=== PATIENT | female | born 1950 | race Caucasian/White ===

== ENCOUNTER → 2016-06-16 | Day surgery (SDC) | payer OTHER, BC | END | disposition home or self-care (01) | LOC: JRADIR 11:22 | PROVIDERS: ATTEND Internal Medicine | PROC: 0T9B30Z Drainage of Bladder with Drainage Device, Percutaneous Approach (ICD-10-PCS; principal; 2016-06-16) | DX: Z46.6 Encounter for fitting and adjustment of urinary device (principal); G35 Multiple sclerosis | CPT/HCPCS: 51705; 75984; A4314; A4358 ==

== ENCOUNTER → 2016-07-15 | Day surgery (SDC) | payer OTHER, BC | END | disposition home or self-care (01) | LOC: JRADIR 10:54 | PROVIDERS: ATTEND Internal Medicine | PROC: 0T9B30Z Drainage of Bladder with Drainage Device, Percutaneous Approach (ICD-10-PCS; principal; 2016-07-15) | DX: N99.512 Cystostomy malfunction (principal); G35 Multiple sclerosis; T83.090A Other mechanical complication of cystostomy catheter, initial encounter; Y83.8 Other surgical procedures as the cause of abnormal reaction of the patient, or of later complication, without mention of misadventure at the time of the procedure | CPT/HCPCS: 51705; 75984; 87086 ==

== ENCOUNTER → 2016-09-08 | Day surgery (SDC) | payer OTHER, BC ==
[2016-09-08 13:09] LABS: URINE APPEARANCE CLOUDY; URINE COLOR AMBER; URINE GLUCOSE (UA) NEGATIVE (NEGATIVE); URINE PROTEIN 1+ (NEGATIVE)
[2016-09-08 13:10] LABS: URINE BILIRUBIN NEGATIVE (NEGATIVE); URINE BLOOD 3 (NEGATIVE); URINE KETONE NEGATIVE (NEGATIVE); URINE UROBILINOGEN 4.0 E.U/dl E.U./dl (0.2-1.0)
[2016-09-08 13:12] LABS: URINE LEUK ESTERASE 3+ (NEGATIVE); URINE NITRITE POSITIVE (NEGATIVE)
== END | disposition home or self-care (01) ==
LOC: JRADIR 10:39
PROVIDERS: ATTEND Internal Medicine
PROC: 0T9B70Z Drainage of Bladder with Drainage Device, Via Natural or Artificial Opening (ICD-10-PCS; principal; 2016-09-08)
DX: G35 Multiple sclerosis (principal)
CPT/HCPCS: 75984; 81003; 81015; 87086; 87186; A4314; A4358

== ENCOUNTER 2017-05-19 19:49 | Emergency (ER) | payer OTHER, BC ==
[2017-05-19] MEDS ORDERED: diphenhydrAMINE HCL 25 MG CAPSULE (FP) PO ONE ×2 (20:22→20:25)
[2017-05-19 20:37] LABS: BASO % 0.2 % (0-2.0); EOS % 1.4 % (0-4.5); HEMATOCRIT 37.5 % (32.4-45.2); HEMOGLOBIN 12.4 GM/dl (10.7-15.3); LYMPH % 11.5 % (8-40); MEAN CELL VOLUME 87.9 fl (80-96); MEAN PLT VOLUME 10.1 fl (7.5-11.1); MONO % 4.8 % (3.8-10.2); NEUT % 82.1 % (42.8-82.8); PLATELET COUNT 274 K/MM3 (134-434); RBC 4.27 M/mm3 (3.60-5.2); RDW 13.6 % (11.6-15.6); WHITE BLOOD COUNT 10.4 K/mm3 (4.0-10.8)
[2017-05-19 20:40] VITALS: TEMP 98.1; BMI 20.8
[2017-05-19 20:49] LABS: ALBUMIN 3.4 g/dl (3.5-5.0); ALK PHOS 72 U/L (32-92); ANION GAP 4 (8-16); BILIRUBIN,TOTAL 0.6 mg/dl (0.2-1.0); BLOOD UREA NITROGEN 22 mg/dl (7-18); CALCIUM 8.4 mg/dl (8.4-10.2); CHLORIDE 104 mmol/L (98-107); CO2 27 mmol/L (22-28); CREATININE 0.5 mg/dl (0.6-1.3); GLUCOSE,RANDOM 118 mg/dl (74-106); POTASSIUM 4.6 mmol/L (3.5-5.1); SGOT/AST 14 U/L (10-42); SGPT/ALT 9 U/L (10-40); SODIUM 135 mmol/L (136-145); TOT PROT 6.3 g/dl (6.4-8.3)
--- NOTE | 2017-05-19 21:04 | PDOC ---
History of Present Illness - General History Source: Patient Exam Limitations: No Limitations - History of Present Illness Initial Comments: 05/19/17 21:05 The patient is a 67 year old female with past medical history of advanced MS, neurogenic bladder (with catheter and intrathecal pump), scoliosis, urinary retention and constipation secondary to opioid use, hypothyroidism, and depression who was sent to the ED via her PCP from the [facility], who presents to the ED for low O2 saturation and low pulse rate recorded today. As per , the patient has had episodes of hypotension all week followed by periods of breakthrough. In the ED, the patient is asymptomatic aside from feeling itchy and requesting Benadryl. PCP: Maricruz Nava <Fauzia Avendano - Last Filed: 05/19/17 21:05> <Ko Granados - Last Filed: 05/20/17 02:40> - General Chief Complaint: Blood Pressure Problem Stated Complaint: LOW BP, CHRONIC PAIN Time Seen by Provider: 05/19/17 20:21 Past History <Fauzia Avendano - Last Filed: 05/19/17 21:05> - Past Medical History Anemia: No Asthma: No Cancer: No Cardiac Disorders: No CVA: No COPD: No CHF: No Dementia: No Diabetes: No GI Disorders: Yes (GERD COLONIC POLYPS) Disorders: (neurogenic bladder s/p suprapubic tube) HTN: No Hypercholesterolemia: No Liver Disease: No Psychiatric Problems: Yes (anxiety) Seizures: No Thyroid Disease: Yes (HYPOTHYROIDISM) - Surgical History Abdominal Surgery: No Appendectomy: No Cardiac Surgery: No Cholecystectomy: No Lung Surgery: No Neurologic Surgery: No Orthopedic Surgery: Yes (FRACTURE LT. HUMERUS-ORIF 2005) - Immunization History Immunization Up to Date: Yes - Suicide/Smoking/Psychosocial Hx Smoking History: Never smoked Have you smoked in the past 12 months: No Number of Cigarettes Smoked Daily: 0 Hx Alcohol Use: No Drug/Substance Use Hx: No Substance Use Type: None Hx Substance Use Treatment: No <Ko Granados - Last Filed: 05/20/17 02:40> - Past Medical History Allergies/Adverse Reactions: Allergies Allergy/AdvReac Type Severity Reaction Status Date / Time Tetracyclines Allergy Severe Verified 04/07/15 10:25 tingling and burning all over body Home Medications: Ambulatory Orders Alprazolam [Xanax] 0.25 mg PO TID 03/30/15 Ascorbate Calcium [Vitamin C] 500 mg PO DAILY 05/19/17 Dalfampridine [Ampyra] 10 mg PO Q12H 05/19/17 Diclofenac Sodium [Diclo Gel] 1 each TP TID PRN 05/19/17 Hydrocortisone 10 mg PO DAILY 05/19/17 Hydrocortisone [Cortef -] 5 mg PO HS 05/19/17 Lamotrigine [Lamictal -] 50 mg PO HS 05/19/17 Lamotrigine [Lamictal -] 100 mg PO DAILY 05/19/17 Levothyroxine [Synthroid -] 112 mcg PO Q48H 05/19/17 Levothyroxine [Synthroid -] 125 mcg PO Q48H 05/19/17 Linaclotide [Linzess] 145 mcg PO DAILY 05/19/17 Methadone [Dolophine -] 10 mg PO Q8H 05/19/17 Morphine 3,800 mcg 05/19/17 Nitrofurantoin Monohyd/M-Cryst [Macrobid -] 100 mg PO DAILY 05/19/17 Pregabalin [Lyrica -] 150 mg PO TID 05/19/17 Rivaroxaban [Xarelto -] 15 mg PO HS 05/19/17 Review of Systems - Review of Systems Able to Perform ROS?: Yes Comments:: 05/19/17 21:06 GENERAL/CONSTITUTIONAL: No fever or chills. No weakness. HEAD, EYES, EARS, NOSE AND THROAT: No change in vision. No ear pain or discharge. No sore throat. CARDIOVASCULAR: No chest pain or shortness of breath. RESPIRATORY: No cough, wheezing, or hemoptysis. GASTROINTESTINAL: No nausea, vomiting, diarrhea or constipation. GENITOURINARY: No dysuria, frequency, or change in urination. MUSCULOSKELETAL: No joint or muscle swelling or pain. No neck or back pain. SKIN: Present: itchy skin No rash NEUROLOGIC: No headache, vertigo, loss of consciousness, or change in strength/ sensation. ENDOCRINE: No increased thirst. No abnormal weight change. HEMATOLOGIC/LYMPHATIC: No anemia, easy bleeding, or history of blood clots. ALLERGIC/IMMUNOLOGIC: No hives or skin allergy. All Other Systems: Reviewed and Negative <Fauzia Avendano - Last Filed: 05/19/17 21:05> *Physical Exam - Vital Signs Last Vital Signs Temp Pulse Resp BP Pulse Ox 98.1 F 47 L 12 88/41 94 L 05/19/17 19:59 05/19/17 20:43 05/19/17 20:43 05/19/17 20:43 05/19/17 20:43 - Physical Exam Comments: 05/19/17 21:07 GENERAL: Awake, alert, and fully oriented, uncomfortable appearing HEAD: No signs of trauma EYES: PERRLA, EOMI, sclera anicteric, conjunctiva clear ENT: Dry mucous membranes. Auricles normal inspection, hearing grossly normal, nares patent, oropharynx clear without exudates. NECK: Normal ROM, supple, no lymphadenopathy, JVD, or masses LUNGS: Breath sounds equal, clear to auscultation bilaterally. No wheezes, and no crackles HEART: Regular rate and rhythm, normal S1 and S2, no murmurs, rubs or gallops ABDOMEN: Soft, nontender, normoactive bowel sounds. No guarding, no rebound. No masses EXTREMITIES: Normal range of motion, no edema. No clubbing or cyanosis. No cords, erythema, or tenderness NEUROLOGICAL: Cranial nerves II through XII grossly intact. Chronic neural impairment SKIN: Warm, Dry, normal turgor, no rashes or lesions noted. No decubitus. <Fauzia Avendano - Last Filed: 05/19/17 21:05> - Vital Signs Last Vital Signs Temp Pulse Resp BP Pulse Ox 98.1 F 47 L 12 88/41 94 L 05/19/17 19:59 05/19/17 20:43 05/19/17 20:43 05/19/17 20:43 05/19/17 20:43 <Ko Granados - Last Filed: 05/20/17 02:40> ED Treatment Course - LABORATORY CBC & Chemistry Diagram: 05/19/17 20:15 05/19/17 20:15 - ADDITIONAL ORDERS Additional order review: Laboratory Results 05/19/17 20:15 Sodium 135 L Potassium 4.6 D Chloride 104 Carbon Dioxide 27 Anion Gap 4 L BUN 22 H D Creatinine 0.5 L Creat Clearance w eGFR > 60 Random Glucose 118 H D Calcium 8.4 Total Bilirubin 0.6 D AST 14 D ALT 9 L D Alkaline Phosphatase 72 D Total Protein 6.3 L Albumin 3.4 L 05/19/17 20:15 RBC 4.27 MCV 87.9 MCHC 33.0 RDW 13.6 MPV 10.1 Neutrophils % 82.1 Lymphocytes % 11.5 Monocytes % 4.8 Eosinophils % 1.4 Basophils % 0.2 - Medications Given in the ED: ED Medications Discontinued Medications Generic Name Dose Route Start Last Admin Trade Name Michelle PRN Reason Stop Dose Admin Diphenhydramine HCl 25 mg 05/19/17 20:22 05/19/17 20:25 Benadryl - PO 05/19/17 20:23 25 mg ONCE ONE Administration <Fauzia Avendano - Last Filed: 05/19/17 21:05> - LABORATORY CBC & Chemistry Diagram: 05/19/17 20:15 05/19/17 20:15 - ADDITIONAL ORDERS Additional order review: Laboratory Results 05/19/17 20:15 Sodium 135 L Potassium 4.6 D Chloride 104 Carbon Dioxide 27 Anion Gap 4 L BUN 22 H D Creatinine 0.5 L Creat Clearance w eGFR > 60 Random Glucose 118 H D Calcium 8.4 Total Bilirubin 0.6 D AST 14 D ALT 9 L D Alkaline Phosphatase 72 D Total Protein 6.3 L Albumin 3.4 L 05/19/17 20:15 RBC 4.27 MCV 87.9 MCHC 33.0 RDW 13.6 MPV 10.1 Neutrophils % 82.1 Lymphocytes % 11.5 Monocytes % 4.8 Eosinophils % 1.4 Basophils % 0.2 - Medications Given in the ED: ED Medications Discontinued Medications Generic Name Dose Route Start Last Admin Trade Name Michelle PRN Reason Stop Dose Admin Diphenhydramine HCl 25 mg 05/19/17 20:22 05/19/17 20:25 Benadryl - PO 05/19/17 20:23 25 mg ONCE ONE Administration <Ko Granados - Last Filed: 05/20/17 02:40> Medical Decision Making - Medical Decision Making 05/20/17 02:40 05/20/17 02:36 please note: no CVAT decreased ROM in RUE and b/l LEs no decubs noted observed x 5hrs in ED with normalization of VS Prerenal azotemia treated with NS equivocal UA--u culture sent to be followed up a/p dehydration medication reaction improved after ED mgmt/ observation 05/20/17 02:39 <Ko Granados - Last Filed: 05/20/17 02:40> *DC/Admit/Observation/Transfer - Attestations Scribe Attestion: 05/19/17 21:09 Documentation prepared by Fauzia Avendano, acting as medical staff manager for Ko Granados MD/DO. <Fauzia Avendano - Last Filed: 05/19/17 21:05> <Ko Granados - Last Filed: 05/20/17 02:40> Diagnosis at time of Disposition: Multiple sclerosis - Discharge Dispostion Disposition: HOME Condition at time of disposition: Good - Referrals Referrals: Maricruz Nava MD [Primary Care Provider] - - Patient Instructions Additional Instructions: Please call for the results of your urine culture: [phone] - Post Discharge Activity
[2017-05-19 22:54] LABS: URINE APPEARANCE Clear; URINE BILIRUBIN Negative (NEGATIVE); URINE GLUCOSE (UA) Negative (NEGATIVE); URINE KETONE Negative (NEGATIVE); URINE NITRITE Negative (NEGATIVE); URINE UROBILINOGEN 0.2 (0.2-1.0)
[2017-05-19 22:56] LABS: URINE BLOOD 3+ (NEGATIVE); URINE PROTEIN 1+ (NEGATIVE)
[2017-05-19 22:57] LABS: URINE COLOR YELLOW; URINE LEUK ESTERASE TRACE (NEGATIVE)
[2017-05-19 23:09] LABS: URINE BACTERIA FEW /hpf (NEGATIVE); URINE RBC >50 /hpf (0-3)
[2017-05-20 00:20] VITALS: BP 98/52; PULSE 54
== END 2017-05-20 03:20 | disposition home or self-care (01) ==
LOC: FER 19:49
DX: G35 Multiple sclerosis (principal); N39.9 Disorder of urinary system, unspecified; E03.9 Hypothyroidism, unspecified; F32.9 Major depressive disorder, single episode, unspecified; K59.03 Drug induced constipation
CPT/HCPCS: 36415; 80053; 81003; 81015; 84484; 85025; 87086; 99285-25